=== PATIENT | male | born 1960 | race Caucasian/White ===

== ENCOUNTER 2018-05-31 11:04 | Observation (INO) | payer SELFPAY ==
[2018-05-31] VITALS (10 sets, daily range): BP systolic 101–140; BP diastolic 65–91; PULSE 56–91; RESP 12–18; TEMP 36.2–36.9; O2SAT 94–99; BMI 25.9; BMI 23.1; BMI 23.2
--- NOTE | 2018-05-31 11:30 | US_ITS ---
STUDY: ABDOMINAL ULTRASOUND - RIGHT UPPER QUADRANT REASON FOR VISIT: Male, 57 years old. Right upper quadrant pain. TECHNIQUE: Ultrasound evaluation of the right upper quadrant was performed with real-time and static stover-scale imaging. TECHNICAL QUALITY: Limited. Examination limited by bowel gas. COMPARISON: None. FINDINGS: Liver: The liver measures 15.4 cm. There is normal echogenicity of the liver. The bile ducts are within normal limits. There is hepatic color flow. The direction of portal flow is hepatopetal. There is no demonstrated mass lesion. Gallbladder: Normal distended gallbladder. The gallbladder wall is slightly thickened and measures 4.1 mm. There is a negative sonographic Gould's sign. There is no pericholecystic fluid. There is a solitary echogenic gallstone within the gallbladder. This measures 8 mm x 6 mm x 4 mm. A small amount of sludge is seen within the gallbladder lumen. Common Bile Duct (C.B.D.): The common bile duct measures 6.5 mm. Pancreas: There is nonvisualization of the pancreas due to overlying bowel gas. Right Kidney: Normal size of the right kidney. The right kidney measures 10.4 cm x 4.3 cm x 6.4 cm. Normal renal cortex. The right cortex measures 1.3 cm. There is no demonstrated renal mass or cyst. There is no right hydronephrosis. US/Gallbladder IMPRESSION: Solitary gallstone and sludge in the gallbladder lumen. Mild gallbladder wall thickening. Electronically Signed: Walter Saravia MD at 13:40 EST , Service support ,
--- NOTE | 2018-05-31 11:32 | ED.DCSUM_ITS ---
- ER Visit Summary Date of Service: 05/31/18 Chief Complaint: Abdominal pain History of Present Illness: The patient is a 57 M with abdominal pain for the past 2 weeks. It is epigastric and somewhat right upper quadrant. It is not related to food. It is an achy pain. It was moderate right prior to prese ntation it is now mild. No nausea vomiting diarrhea or constipation no flank pain no urinary symptoms. Physical Examination: Not appear in acute distress. Moist mucous membranes, no obvious facial deformity No C-spine tenderness supple neck. Regular rate and rhythm without any obvious murmurs Clear lungs bilaterally speaking in full sentences without any obvious respiratory distress Abdomen soft with epigastric pain, some right upper quadrant pain. Negative Gould's. No guarding or rebound no lower abdominal pain. Moves all extremities without any difficulty or pain. Skin does not show any obvious rashes or lesions, no trauma. Alert oriented ?3 with no gross focal deficit Emergency Department Course and Treatment: Patient is found to have gallstone pancreatitis, he is given analgesics there is no evidence of infection. I discussed the patient with Dr. Simth through the OR nurse, patient will be admitted to his service for further treatment. Disposition: Admit to the surgical service and currently stable condition Impression: Gallstone pancreatitis This note was generated with [employer] dictation software. It may contain incorrect words, spelling, and punctuation that were not noted in review of the chart prior to signing ED Disposition - Plan for ED Patient: Referrals: Care Physician,No Primary [Primary Care Provider] -
[2018-05-31] MEDS: Mag Hydrox/Al Hydrox/Simeth 30 ML UDC PO (11:55)
[2018-05-31 12:07] LABS: Absolute Lymphocyte Count 1.43 X10^3/ul (0.83-4.51); Absolute Neutrophil Count 4.2 X10^3/uL (2.0-7.7); Basophil# 0.01 X10^3/uL; Basophil% 0.2 % (0-1); Eosinophil# 0.09 X10^3/uL; Eosinophils% 1.4 % (0-5); Hematocrit 46.3 % (40-54); Hemoglobin 15.5 g/dl (13.0-16.5); Lymphocyte # 1.43 X10^3/ul (4.0); Lymphocyte % 22.2 % (19-41); Mean Corp Hgb Conc 33.5 g/gl (32-36); Mean Corpuscular Hgb 31.1 pg (27.0-32.0); Mean Platelet Vol. 10.7 fl (6.2-12.0); Monocyte# 0.71 X10^3/uL; Platelet Count 258 K/mm3 (150-450); RBC Distribution Width CV 12.4 % (11.6-14.6); RBC Distribution Width SD 41.3 fl (35.1-43.9); Red Blood Count 4.98 M/mm3 (4.6-6.2); White Blood Count 6.5 K/mm3 (4.4-11.0)
[2018-05-31 12:10] LABS: POSITIVE COUNT NO; POSITIVE DIFFERENTIAL NO; POSITIVE MORPHOLOGY NO
[2018-05-31 12:26] LABS: ALB/GLOB Ratio 1.1 RATIO (0.9-2.4); AST(SGOT) 343 U/L (15-37); Alanine Aminotransfer ALT/SGPT 304 U/L (16-61); Albumin, Serum 3.8 g/dL (3.2-5.0); Alkaline Phosphatase 174 U/L (45-117); Anion Gap 5 (5-15); BUN 15 mg/dL (7-18); BUN/Creat Ratio 15.3 RATIO (10-20); Calcium,Total 8.6 mg/dL (8.5-10.1); Chloride 106 mmol/L (98-107); Creatinine, Serum 0.98 mg/dL (0.70-1.30); EST Glomerular Filtration Rate 84 mL/min (>60); Est Glom Filt Rate - Afr Amer 101 mL/min (>60); Globulin 3.6 g/dL (2.2-4.2); Glucose 99 mg/dL (74-106); Lipase 7950 U/L (73-393); Potassium 4.3 mmol/L (3.5-5.1); Protein, Total 7.4 g/dL (6.4-8.2); Sodium Level 138 mmol/L (136-145)
--- NOTE | 2018-05-31 14:30 | PCM.HP.STD ---
Problem List (1) Gallstone pancreatitis Status: Acute (2) Elevated liver enzymes Status: Acute History of Present Illness Date of Admission: 05/31/18 The patient is a 57 year old M who presented with right upper quadrant and epigastric pain. The patient reports for the last 2 weeks he has had this happen about 4 times. He said usually last 12 hours. He describes no nausea or vomiting but only epigastric and right upper quadrant pain. He also says that for some time he gets pain when he eats. He does not describe any fevers or chills. Past Medical History Allergies No Known Allergies Allergy (Verified 05/31/18 11:05) Home Medications: Ambulatory Orders Medication Instructions Recorded NK 05/31/18 Surgical History: no surgical history Lives: Spouse/ Significant Other Smoking Status: Never smoker Alcohol: None Drugs: None - *Family History Maternal History Items: No pertinent history Review of Systems Constitutional: Denies: Chills, Fever, Weight Change HEENT: Denies: Head Aches, Sinus Congestion, Sinus Drainage Cardiovascular: Denies: Chest Pain, Palpitations Respiratory: Denies: Cough, Shortness of breath at rest, Sputum production Gastrointestinal: Reports: Abdominal Pain. Denies: Nausea, Vomiting Genitourinary: Denies: Dysuria Musculoskeletal: Denies: Joint Pain, Joint Tenderness Skin: Denies: Rash, Wounds Neurological: Denies: Numbness, Tingling, Focal weakness Psychiatric: Denies: Anxiety, Depression, Homicidal Ideations, Suicidal Ideations Hematologic/ Lymphatic: Denies: Easy Bruising, Easy Bleeding VTE Information - Inpt Only VTE Present on Admission: No VTE Mechan Device Prophylaxis: SCD's Patient Problems: Active and Suspected Problems Gallstone pancreatitis (Acute) Elevated liver enzymes (Acute) - Physical Exam General: Alert, Oriented x3, Cooperative, No apparent distress HEENT: Atraumatic, EOMI Neck: Supple Lungs: Normal air movement Cardiovascular: Regular rate, Regular Rhythm Abdomen: Soft, Non Tender, Non-Distended Extremities: No clubbing Skin: No rashes Musculoskeletal: No Muscle Wasting Neurological: Cranial nerves II-XII grossly intact Psych/Mental Status: Normal Affect Vital Signs Temp Pulse Resp BP Pulse Ox 97.1 F L 76 12 126/91 H 96 05/31/18 11:06 05/31/18 14:28 05/31/18 14:28 05/31/18 14:28 05/31/18 14:28 Oxygen Delivery Method Room Air Weight: 181 lb 3.52 oz Body Mass Index (BMI) 25.9 Laboratory Tests Past 24 Hrs 05/31/18 05/31/18 11:15 11:15 WBC 6.5 RBC 4.98 Hgb 15.5 Hct 46.3 MCV 93.0 MCH 31.1 MCHC 33.5 RDW 12.4 RDW Differential 41.3 Plt Count 258 MPV 10.7 Immature Gran % (Auto) 0.200 Neut % (Auto) 65.0 Lymph % (Auto) 22.2 [place] % (Auto) 11.0 H Eos % (Auto) 1.4 Baso % (Auto) 0.2 Absolute Neuts (auto) 4.2 Absolute Lymphs (auto) 1.43 Total Counted Not Reportable Sodium 138 Potassium 4.3 Chloride 106 Carbon Dioxide 27.0 Anion Gap 5 BUN 15 Creatinine 0.98 Estim Creat Clear Calc 86.90 Est GFR (MDRD) Af Amer 101 Est GFR (MDRD) Non-Af 84 BUN/Creatinine Ratio 15.3 Glucose 99 Calcium 8.6 Total Bilirubin 0.90 AST 343 H ALT 304 H Alkaline Phosphatase 174 H Total Protein 7.4 Albumin 3.8 Globulin 3.6 Albumin/Globulin Ratio 1.1 Lipase 7950 H Clinical Impression(s) from Imaging Studies Gallbladder Ultrasound 05/31/18 11:30 IMPRESSION: Solitary gallstone and sludge in the gallbladder lumen. Mild gallbladder wall thickening. Electronically Signed: Walter Saravia MD at 13:40 EST , Service support , Assessment/Plan All Active Problems Gallstone pancreatitis (Acute) Elevated liver enzymes (Acute) 57-year-old male with gallstone pancreatitis and possible choledocholithiasis 1. The patient reports that coming into the emergency room his pain stopped today. I believe that the patient may be passing small stones from his gallbladder or have one large stone the keeps moving in and out of the way and partially obstructing his common bile duct. His common bile duct is slightly dilated and he does have increased LFTs. He does have gallstones. 2. I recommend performing an ERCP today to ensure that his duct is clear and there are no stones in it. I will proceed with laparoscopic cholecystectomy tomorrow. I explained to him that this would be to ensure that his duct is clear and that this does not happen again but that this would not help his current pain. I explained that I would not feed him until his pancreatitis resolved. 3. I explained ERCP in detail with the patient including the risks. I explained all the risks including but not limited to bleeding, infection, perforation of the bile duct or bowels. Also this may worsen his pancreatitis. The patient understands all the details and risks and agrees to proceed with ERCP today. Olivier Smith MD Pager: [facility] [address] [place] [address] [address] [place] [address] Office:
--- NOTE | 2018-05-31 14:30 | NURSING ---
302 GALLSONE PANCREATITIS ISI
--- NOTE | 2018-05-31 14:31 | CM.ED ---
SOCIAL WORK NOTE REFERRAL DATE: 05/31/18 INFORMANT: NURSE, CORETTA Romero REASON FOR CONSULT: FINANCIAL/SELF PAY. MET WITH PT AND PT'S SIG PATSY, RUTHIE IN ROOM. INTRODUCED ROLE AND REASON FOR REFERRAL. PT IS SELF EMPLOYED AND STATES BELIEVES TO BE OVER INCOME FOR MEDICAID. PT STATES ATTEMPTED TO OBTAIN INSURANCE, BUT HAS MISSED THE ENROLLMENT PERIOD. DISCUSSED OPTIONS AND GIVEN RESOURCES. ALL QUESTIONS ANSWERED AT THIS TIME. PLAN: ADMIT
--- NOTE | 2018-05-31 14:33 | HP.PCM_ITS ---
Problem List (1) Gallstone pancreatitis Status: Acute (2) Elevated liver enzymes Status: Acute History of Present Illness Date of Admission: 05/31/18 The patient is a 57 year old M who presented with right upper quadrant and epigastric pain. The patient reports for the last 2 weeks he has had this happen about 4 times. He said usually last 12 hours. He describes no nausea or vomiting but only epigastric and right upper quadrant pain. He also says that for some time he gets pain when he eats. He does not describe any fevers or chills. Past Medical History Allergies No Known Allergies Allergy (Verified 05/31/18 11:05) Home Medications: Ambulatory Orders Medication Instructions Recorded NK 05/31/18 Surgical History: no surgical history Lives: Spouse/ Significant Other Smoking Status: Never smoker Alcohol: None Drugs: None - *Family History Maternal History Items: No pertinent history Review of Systems Constitutional: Denies: Chills, Fever, Weight Change HEENT: Denies: Head Aches, Sinus Congestion, Sinus Drainage Cardiovascular: Denies: Chest Pain, Palpitations Respiratory: Denies: Cough, Shortness of breath at rest, Sputum production Gastrointestinal: Reports: Abdominal Pain. Denies: Nausea, Vomiting Genitourinary: Denies: Dysuria Musculoskeletal: Denies: Joint Pain, Joint Tenderness Skin: Denies: Rash, Wounds Neurological: Denies: Numbness, Tingling, Focal weakness Psychiatric: Denies: Anxiety, Depression, Homicidal Ideations, Suicidal Ideations Hematologic/ Lymphatic: Denies: Easy Bruising, Easy Bleeding VTE Information - Inpt Only VTE Present on Admission: No VTE Mechan Device Prophylaxis: SCD's Patient Problems: Active and Suspected Problems Gallstone pancreatitis (Acute) Elevated liver enzymes (Acute) - Physical Exam General: Alert, Oriented x3, Cooperative, No apparent distress HEENT: Atraumatic, EOMI Neck: Supple Lungs: Normal air movement Cardiovascular: Regular rate, Regular Rhythm Abdomen: Soft, Non Tender, Non-Distended Extremities: No clubbing Skin: No rashes Musculoskeletal: No Muscle Wasting Neurological: Cranial nerves II-XII grossly intact Psych/Mental Status: Normal Affect Vital Signs Temp Pulse Resp BP Pulse Ox 97.1 F L 76 12 126/91 H 96 05/31/18 11:06 05/31/18 14:28 05/31/18 14:28 05/31/18 14:28 05/31/18 14:28 Oxygen Delivery Method Room Air Weight: 181 lb 3.52 oz Body Mass Index (BMI) 25.9 Laboratory Tests Past 24 Hrs 05/31/18 05/31/18 11:15 11:15 WBC 6.5 RBC 4.98 Hgb 15.5 Hct 46.3 MCV 93.0 MCH 31.1 MCHC 33.5 RDW 12.4 RDW Differential 41.3 Plt Count 258 MPV 10.7 Immature Gran % (Auto) 0.200 Neut % (Auto) 65.0 Lymph % (Auto) 22.2 [place] % (Auto) 11.0 H Eos % (Auto) 1.4 Baso % (Auto) 0.2 Absolute Neuts (auto) 4.2 Absolute Lymphs (auto) 1.43 Total Counted Not Reportable Sodium 138 Potassium 4.3 Chloride 106 Carbon Dioxide 27.0 Anion Gap 5 BUN 15 Creatinine 0.98 Estim Creat Clear Calc 86.90 Est GFR (MDRD) Af Amer 101 Est GFR (MDRD) Non-Af 84 BUN/Creatinine Ratio 15.3 Glucose 99 Calcium 8.6 Total Bilirubin 0.90 AST 343 H ALT 304 H Alkaline Phosphatase 174 H Total Protein 7.4 Albumin 3.8 Globulin 3.6 Albumin/Globulin Ratio 1.1 Lipase 7950 H Clinical Impression(s) from Imaging Studies Gallbladder Ultrasound 05/31/18 11:30 IMPRESSION: Solitary gallstone and sludge in the gallbladder lumen. Mild gallbladder wall thickening. Electronically Signed: Walter Saravia MD at 13:40 EST , Service support , Assessment/Plan All Active Problems Gallstone pancreatitis (Acute) Elevated liver enzymes (Acute) 57-year-old male with gallstone pancreatitis and possible choledocholithiasis 1. The patient reports that coming into the emergency room his pain stopped today. I believe that the patient may be passing small stones from his gallbladder or have one large stone the keeps moving in and out of the way and partially obstructing his common bile duct. His common bile duct is slightly dilated and he does have increased LFTs. He does have gallstones. 2. I recommend performing an ERCP today to ensure that his duct is clear and there are no stones in it. I will proceed with laparoscopic cholecystectomy tomorrow. I explained to him that this would be to ensure that his duct is clear and that this does not happen again but that this would not help his current pain. I explained that I would not feed him until his pancreatitis resolved. 3. I explained ERCP in detail with the patient including the risks. I explained all the risks including but not limited to bleeding, infection, perforation of the bile duct or bowels. Also this may worsen his pancreatitis. The patient understands all the details and risks and agrees to proceed with ERCP today. Olivier Smith MD Pager: [facility] [address] [place] [address] [address] [place] [address] Office:
--- NOTE | 2018-05-31 14:40 | RAD_ITS ---
STUDY: ERCP. REASON FOR EXAM: Male, 57 years old. Gallstones. Dilated common bile duct. FLUOROSCOPY TIME (if supplied): (2:54) minutes/seconds. Imaging was submitted. TECHNIQUE: An ERCP was performed by the surgeon. Contrast was injected. COMPARISON: None. FINDINGS: There is dilatation of the common bile duct. There is a filling defect in the distal portion of the common bile duct. No contrast is seen entering the duodenum. A distal gallbladder stones should be ruled out. A balloon catheter was then placed. RAD/ERCP Biliary Only IMPRESSION: Dilated common bile duct with the intraluminal filling defect along its distal portion. Balloon catheter was then passed. Electronically Signed: Walter Saravia MD at 8:25 EST , Service support ,
[2018-05-31] MEDS: Dextrose 5%-Lactated Ringers 1,000 ML 125 ML IV (15:18)
--- NOTE | 2018-05-31 16:13 | NURSING ---
call placed to report given to iraj
--- NOTE | 2018-05-31 17:54 | CT_ITS ---
STUDY: CT ABDOMEN AND PELVIS WITHOUT CONTRAST REASON FOR EXAM: Male, 57 years old. Right upper quadrant pain. Elevated liver enzymes. RADIATION DOSAGE (If Supplied By Facility): CTDIvol = ( 10.23 ) mGy, DLP = ( 545.93 ) mGycm TECHNIQUE: Transaxial images were obtained from the dome of the diaphragm to the symphysis pubis without oral contrast, and without intravenous contrast. Sagittal and coronal images were reconstructed. Individualized dose optimization techniques were used for this CT. COMPARISON: Abdominal ultrasound, May 31, 2018. ERCP, May 31, 2018 FINDINGS: Minimal dependent changes at the lung bases. The lungs are otherwise clear. The visualized portions of the heart are within normal limits. Liver is normal in size, contour and density. There is evidence of pneumobilia on the nondependent intrahepatic bile ducts minimal ductal dilatation in the dependent ducts. Air is seen in the CBD. There is a biliary stent extending from the CBD into the duodenum. The gallbladder is edematous and nondistended. There are at least 2 gallstones. Minimal air is seen within the fundus. Normal spleen. Normal pancreas. Normal bilateral adrenal glands. Normal right kidney. There is a 2 mm calcification in the proximal right ureter best seen on image 55 of series 2. There is no hydronephrosis. The distal ureter is unremarkable. Normal left kidney. Normal left ureter. There is a small type I hiatal hernia. The stomach is otherwise unremarkable. Normal small intestine. Scattered sigmoid diverticuli without acute inflammatory change. The proximal colon appears unremarkable. The appendix is visualized and appears normal. Normal abdominal aorta. Normal inferior vena cava. Normal retroperitoneum. Normal urinary bladder. The prostate is mildly enlarged with central calcifications. There is prominence of the seminal vesicles. There are phleboliths in the pelvis without lymphadenopathy. No free air or free fluid is seen within the peritoneal cavity. There is an umbilical hernia of omental fat. The abdominal wall is otherwise grossly unremarkable. There are diffuse degenerative changes of the visualized lumbar spine. CT/Abdomen/Pelvis W IV Cont ONLY IMPRESSION: 1. A biliary stent as seen on the ERCP. There is mild pneumobilia. 2. Nondistended edematous gallbladder with gallstones. This was noted on prior ultrasound. 3. What appears to be a nonobstructing calculus in the proximal right ureter. There is no hydronephrosis. 4. Scattered diverticuli without acute inflammatory change. 5. Enlarged prostate with dense central calcifications. 6. Degenerative changes of the lumbar spine Electronically Signed: Kishor Burgess DO at 19:45 EST Tel [phone], Service support ,
--- NOTE | 2018-05-31 17:54 | PCM.PN.BLA ---
Progress Note I performed an ERCP on the patient this evening. The patient did have a few centimeters space between the bowel and the opening of the common bile duct. I am unsure if this is due to swelling or mass or stricture. The patient had a very dilated common bile duct. There was some small sludge removed from the common bile duct but no obvious large stone. A stent was placed. In order to make sure that there is not a mass causing this but I was unable to see on the ERCP I will order a CT of the abdomen. As long as CT is normal patient will go for laparoscopic cholecystectomy tomorrow. Olivier Smith MD Pager: [facility] [address] [place] [address], [address] [place] [address] Office:
--- NOTE | 2018-05-31 18:01 | OP.ENDO_ITS ---
05/31/2018 No Primary Care Physician Re : ERCP procedure for Uziel [facility] Care Physician This procedure was performed on Thursday, May 31, 2018. My impressions and recommendations are as follows: Impressions : - The major papilla appeared normal. - The entire main bile duct was moderately dilated, with an obstruction. - A biliary sphincterotomy was performed. - The biliary tree was swept and sludge was found. - One plastic stent was placed into the common bile duct. Recommendations : My findings are described in the full procedure note, which is enclosed. If I can be of further assistance, please feel free to contact me at Doctor phone number(s): , Work: . Sincerely, Olivier Smith MD 05/31/2018 6:01:04 PM This report has been signed electronically.
[2018-06-01] VITALS (9 sets, daily range): BP systolic 107–128; BP diastolic 71–84; PULSE 80–96; RESP 16–18; TEMP 36.2–37.3; O2SAT 93–98
--- NOTE | 2018-06-01 | GALL_PTH ---
PATIENT: AMARJIT BLANDON LOC: MS3 U#:[id number] AGE/SX: 57/M ROOM: [facility] RE05/31/[address]: Dr. Olivier Smith MD : 1960 BED: 1 DIS: 06/01/2018 SPEC #: [id number] RECD: 06/01/18 15:24 STATUS: LUCIANO BERNARD #: [id number] SARWAT: 06/01/18 00:[address]: Olivier Smith DEPT: SURGICAL PATHOLOGY RECD BY: Venkata Shah ENTERED: 06/02/18 07:50 SP TYPE: MICHELE CASAS DR: No Primary Care Phys Tissues: Gallbladder, NOS Procedures: Surgery Specimen Level III HEADER OPERATION: Laparoscopic cholecystectomy with IOC PRE-OP DIAGNOSIS: Gallstone pancreatitis, elevated liver enzymes TISSUE SUBMITTED: Gallbladder MICROSCOPIC DIAGNOSIS Gallbladder, cholecystectomy: Acute and chronic cholecystitis and cholelithiasis. SJ:mireille 06/03/18 MICROSCOPIC DESCRIPTION Slides are reviewed. GROSS DESCRIPTION Received is one container labeled with the patient's name and designated gallbladder. The specimen consists of a gallbladder measuring 8.5 cm in length and 3 cm in diameter. The external surface is pink-aaron, smooth and glistening for the most part. Focally it is granular, hemorrhagic and contains cautery artifact. The gallbladder contains a small amount of turbid grayish-green mucoid bile and two black irregular stones measuring 0.2 and 0.3 cm in greatest dimension. The mucosa is bile-stained and without any mass lesions. The gallbladder wall measures up to 1 cm in thickness. Increased amount of subserosal fat is noted. [employer] sections from the gallbladder and the cystic duct are submitted in one cassette. / SJ:mireille 06/02/18 TC:2 [facility]: [id number]
--- NOTE | 2018-06-01 05:55 | EKG12_ITS ---
Test Reason : AM EKG Blood Pressure : / mmHG Vent. Rate : 092 BPM Atrial Rate : 092 BPM P-R Int : 168 ms QRS Dur : 102 ms QT Int : 364 ms P-R-T Axes : 060 006 039 degrees QTc Int : 450 ms Normal sinus rhythm Normal ECG No previous ECGs available Confirmed by NINI JAMESON, RADHA ([id number]), newspaper editor managing LUIS ALBERTO RODRIGUEZ ([id number]) on 06/03/2018 9:28:50 AM Referred By: ISI Confirmed By:RADHA TERRAZAS MD
[2018-06-01 06:07] LABS: Absolute Lymphocyte Count 0.74 X10^3/ul (0.83-4.51); Absolute Neutrophil Count 7.3 X10^3/uL (2.0-7.7); Hematocrit 44.3 % (40-54); Lymphocyte # 0.74 X10^3/ul (4.0); Lymphocyte % 9.1 % (19-41); Mean Corp Hgb Conc 33.9 g/gl (32-36); Mean Corpuscular Hgb 30.9 pg (27.0-32.0); Mean Corpuscular Volume 91.3 fL (80-94); Monocyte# 0.06 X10^3/uL; Monocyte% 0.7 % (0-10); Neutrophil # 7.29 X10^3/uL (2.7-7.7); Neutrophil % 90.1 % (47-70); Platelet Count 239 K/mm3 (150-450); RBC Distribution Width SD 39.7 fl (35.1-43.9); Red Blood Count 4.85 M/mm3 (4.6-6.2); White Blood Count 8.1 K/mm3 (4.4-11.0)
[2018-06-01 06:28] LABS: POSITIVE COUNT NO; POSITIVE DIFFERENTIAL NO; POSITIVE MORPHOLOGY NO
[2018-06-01 06:30] LABS: AST(SGOT) 65 U/L (15-37); Alanine Aminotransfer ALT/SGPT 190 U/L (16-61); Albumin, Serum 3.2 g/dL (3.2-5.0); Alkaline Phosphatase 139 U/L (45-117); Anion Gap 10 (5-15); BUN 13 mg/dL (7-18); BUN/Creat Ratio 12.4 RATIO (10-20); Calcium,Total 8.5 mg/dL (8.5-10.1); Chloride 109 mmol/L (98-107); Creatinine, Serum 1.05 mg/dL (0.70-1.30); EST Glomerular Filtration Rate 78 mL/min (>60); Est Glom Filt Rate - Afr Amer 94 mL/min (>60); Estimated Creatinine Clearance 81.11 ml/min; Globulin 3.1 g/dL (2.2-4.2); Glucose 172 mg/dL (74-106); Lipase 209 U/L (73-393); Potassium 4.2 mmol/L (3.5-5.1); Protein, Total 6.3 g/dL (6.4-8.2); Sodium Level 142 mmol/L (136-145)
--- NOTE | 2018-06-01 07:12 | PCM.PN.SRG ---
Patient Problems: Active and Suspected Problems Gallstone pancreatitis (Acute) Elevated liver enzymes (Acute) Subjective: Patient is feeling well this morning. - Physical Exam General: Alert, Oriented x3 Lungs: Normal air movement Cardiovascular: Regular rate, Regular Rhythm Abdomen: Soft, Non Tender, Non-Distended Vital Signs Temp Pulse Resp BP Pulse Ox 98.4 F 96 16 112/71 93 06/01/18 03:10 06/01/18 03:10 06/01/18 03:10 06/01/18 03:10 06/01/18 03:10 Oxygen Delivery Method Room Air Weight: 161 lb 6.054 oz Body Mass Index (BMI) 23.1 Intake and Output for Last 24 Hours 05/30/18 05/31/18 06/01/18 23:59 23:59 23:59 Intake Total 800 / 800 679 / 679 Balance 800 / 800 679 / 679 Laboratory Tests Past 24 Hrs 05/31/18 05/31/18 06/01/18 11:15 11:15 05:38 WBC 6.5 8.1 RBC 4.98 4.85 Hgb 15.5 15.0 Hct 46.3 44.3 MCV 93.0 91.3 MCH 31.1 30.9 MCHC 33.5 33.9 RDW 12.4 12.0 RDW Differential 41.3 39.7 Plt Count 258 239 MPV 10.7 11.0 Immature Gran % (Auto) 0.200 0.100 Neut % (Auto) 65.0 90.1 H Lymph % (Auto) 22.2 9.1 L [place] % (Auto) 11.0 H 0.7 Eos % (Auto) 1.4 0.0 Baso % (Auto) 0.2 0.0 Absolute Neuts (auto) 4.2 7.3 Absolute Lymphs (auto) 1.43 0.74 L Total Counted Not Reportable Not Reportable Sodium 138 Potassium 4.3 Chloride 106 Carbon Dioxide 27.0 Anion Gap 5 BUN 15 Creatinine 0.98 Estim Creat Clear Calc 86.90 Est GFR (MDRD) Af Amer 101 Est GFR (MDRD) Non-Af 84 BUN/Creatinine Ratio 15.3 Glucose 99 Calcium 8.6 Total Bilirubin 0.90 AST 343 H ALT 304 H Alkaline Phosphatase 174 H Total Protein 7.4 Albumin 3.8 Globulin 3.6 Albumin/Globulin Ratio 1.1 Lipase 7950 H 06/01/18 05:38 WBC RBC Hgb Hct MCV MCH MCHC RDW RDW Differential Plt Count MPV Immature Gran % (Auto) Neut % (Auto) Lymph % (Auto) [place] % (Auto) Eos % (Auto) Baso % (Auto) Absolute Neuts (auto) Absolute Lymphs (auto) Total Counted Sodium 142 Potassium 4.2 Chloride 109 H Carbon Dioxide 23.0 Anion Gap 10 BUN 13 Creatinine 1.05 Estim Creat Clear Calc 81.11 Est GFR (MDRD) Af Amer 94 Est GFR (MDRD) Non-Af 78 BUN/Creatinine Ratio 12.4 Glucose 172 H Calcium 8.5 Total Bilirubin 0.60 AST 65 H ALT 190 H Alkaline Phosphatase 139 H Total Protein 6.3 L Albumin 3.2 Globulin 3.1 Albumin/Globulin Ratio 1.0 Lipase 209 Clinical Impression(s) from Imaging Studies Gallbladder Ultrasound 05/31/18 11:30 IMPRESSION: Solitary gallstone and sludge in the gallbladder lumen. Mild gallbladder wall thickening. Electronically Signed: Walter Saravia MD at 13:40 EST , Service support , Abdomen/Pelvis CT 05/31/18 17:54 IMPRESSION: 1. A biliary stent as seen on the ERCP. There is mild pneumobilia. 2. Nondistended edematous gallbladder with gallstones. This was noted on prior ultrasound. 3. What appears to be a nonobstructing calculus in the proximal right ureter. There is no hydronephrosis. 4. Scattered diverticuli without acute inflammatory change. 5. Enlarged prostate with dense central calcifications. 6. Degenerative changes of the lumbar spine Electronically Signed: Kishor Burgess DO at 19:45 EST Tel [phone], Service support , Medical Necessity - Tobacco Use Smoking Status: Never smoker Assessment/Plan All Active Problems Gallstone pancreatitis (Acute) Elevated liver enzymes (Acute) 57-year-old male with gallstone pancreatitis and biliary obstruction 1. Patient had ERCP yesterday with stent placement. The patient had a very dilated common bile duct and a segment of common duct which was stenosed in the distal segment. The ampulla appeared normal. Patient may need EUS and stent removal at a tertiary hospital. Patient had CT scan yesterday evening which did not show any masses in the pancreas or liver. The gallbladder did appear edematous. Patient will go for laparoscopic cholecystectomy this morning. Continue antibiotics. 2. I discussed the procedure in detail with the patient. I discussed the risks, benefits, and alternatives of the procedure. I discussed the risks including but not limited to bleeding, infection, injury to surrounding organs such as the liver, bile duct, bowels. I did discuss the possibility of having to convert to an open procedure as well as the possibility that if any injuries occurred this may necessitate further surgery at a tertiary care center. Olivier Smith MD Pager: [facility] [address] [place] [address] [address] [place] [address] Office:
--- NOTE | 2018-06-01 09:05 | RAD_ITS ---
STUDY: INTRAOPERATIVE CHOLANGIOGRAM. REASON FOR EXAM: Male, 57 years old. Laparoscopic cholecystectomy. FLUOROSCOPY TIME (if supplied): (0:22) minutes/seconds TECHNIQUE: An intraoperative placement was performed by the surgeon. Imaging was provided. COMPARISON: None. FINDINGS: Mild dilatation of the common bile duct. The distal portion of the common bile duct is narrow although there is flow of contrast into the duodenum. No intraluminal filling defect is seen. RAD/Cholangiogram/ O R,Initial IMPRESSION: Narrowing of the distal portion of the common bile duct. Contrast is seen within the duodenum. Electronically Signed: Walter Saravia MD at 9:25 EST , Service support ,
--- NOTE | 2018-06-01 12:37 | PCA ---
pt off floor
[2018-06-01] MEDS: Bupiv/Epi 0.5% Mpf 30 ML Vial (12:44)
--- NOTE | 2018-06-01 13:24 | OP.PCM_ITS ---
Problem List (1) Gallstone pancreatitis Status: Acute (2) Elevated liver enzymes Status: Acute Report of Operation Date of Procedure: 06/01/18 Pre-Operative Diagnosis: Gallstone pancreatitis Post-Operative Diagnosis: Gallstone pancreatitis. Acute cholecystitis Surgery/Procedure Performed:: Laparoscopic cholecystectomy with cholangiogram Description of Surgical Findings:: Inflamed gallbladder Specimen's removed: Gallbladder and contents Description of Procedure: After obtaining informed consent patient was brought back to the operating room. General anesthesia was induced. The abdomen was prepped and draped in usual sterile fashion. A small midline incision was made superior to the umbilicus and deepened to the level of fascia. The fascia was elevated and incised. Next the peritoneum was elevated and incised in the same fashion. Finger sweep was performed and the Hayes trocar was placed into the abdomen. The balloon was inflated. The abdomen was inflated to 15 mmHg. Next a camera was introduced into the abdomen and the abdomen was inspected. Next under direct visualization three 5-mm ports were placed one subxiphoid and 2 subcostal. The gallbladder was inflamed. Next the gallbladder was elevated and retracted toward the right shoulder. The peritoneum was stripped from the gallbladder. The infundibulum was located and retracted laterally. Next the triangle of Calot was dissected and the cystic duct and cystic artery were identified. Cholangiograms were per formed. The King clamp was used to clamp across the infundibulum and the catheter needle was inserted into the gallbladder. Under fluoroscopy contrast was instilled into the gallbladder and the common duct, cystic duct as well as proximal hepatic ducts were identified. There was good filling of the duodenum. There were no filling defects noted in the common bile duct. The clamp was removed as well as the needle and the infundibulum was grasped once more. Three hemolock clips were placed across the cystic duct. The cystic duct was then divided leaving 2 clips on the stump. The cystic artery was clipped and divided in the same fashion. The hook cautery was then used to take the gallbladder off of the gallbladder bed. Hemostasis was obtained. Gallbladder fossa was irrigated and no active bleeding or bile leakage was noted. Next the camera switched to a 5 mm camera and introduced in the subxiphoid port. An Endopouch bag was placed through the umbilical port and the gallbladder was placed into it. The gallbladder was then removed through the umbilical incision. The camera was then reinserted through the umbilical port. The gallbladder fossa was inspected once more and noted to be hemostatic with no leaking bile. The abdomen was suctioned dry. The 5 mm ports were removed under direct visualization. The umbilical port was then removed and the air was removed from the abdomen. Next using an 0 Vicryl suture the umbilical fascia was closed in a [id number] fashion. The umbilical port site was irrigated local anesthetic was administered to all the incisions. All the incisions were closed with interrupted subcuticular 4-0 Monocryl sutures followed by Steri-Strips and dressings. The patient was awoken and taken to PACU in stable condition. - Admit VTE Documentation VTE Mechan Device Prophylaxis: SCD's
--- NOTE | 2018-06-01 13:28 | DCINST_ITS ---
Discharge Diet: Light diet - advance as tolerated Discharge Activity: Return to Normal Activity, May Not Drive - for 2-3 days or while taking narcotic pain medicataions., - - Do not drive, work heavy equipment or sign legal documents for 24 hours. May shower in (days): 1 - with the bandage in place. Additional Activity Instructions:: Pain medication may cause nausea. You should typically eat light foods as you take your pain medications. Pain medication may also cause constipation. If this is a problem for you, please discuss with your doctor. Call your doctor if your incision/area has: Continuous Slow Oozing, Sudden Increased Bleeding, Increased Pain/ Swelling, Increased Redness, Foul Smelling Discharge, Fever of 101 or Higher Call your doctor if you observe: Fever of 101 or Higher Suture Line Care: Avoid Pulling/Pushing, Avoid Pinching/Bending Additional Dressing/Incision Instructions:: Leave operative bandaids on for 2 days. When you remove dressing, leave Steri-Strips on until your follow-up appointment, or until the Steri-Strips fall off on their own. Allergies/Adverse Reactions: Allergies No Known Allergies Allergy (Verified 05/31/18 11:05) Medications to take at Discharge Oxycodone HCl/Acetaminophen [Percocet 5/325] 1 - 2 tablet PO Q4H PRN PRN 7 Days #40 tablet 06/01/18 The following prescriptions were given: Oxycodone HCl/Acetaminophen [Percocet 5/325] 1 - 2 tablet PO Q4H PRN PRN 7 Days #40 tablet PRN Reason: Pain Primary Care Physician: Care Physician,No Primary [Primary Care Provider] - Test Results: Test results from this visit will be discussed in further detail at your follow- up appointment, if applicable. Please Follow Up With: Olivier Smith MD When: Please call to schedule 1 week follow up appointment. [phone]
[2018-06-01] MEDS: Dextrose 5%-Lactated Ringers 1,000 ML 125 ML IV (13:32)
--- NOTE | 2018-06-01 14:02 | PCA ---
pt off floor
[2018-06-01] MEDS: Acetaminophen 325 MG Tablet 650 MG PO (14:18)
--- NOTE | 2018-06-01 14:30 | NURSING ---
student nurse's charting reviewed for learning and educational purposes
== END 2018-06-01 18:55 | disposition home or self-care (01) ==
LOC: ED 11:27 → MS3 14:35
PROVIDERS: Admitting Provider Surgery; Emergency Provider Emergency Medicine; Visit Provider Surgery
PROC: (CPT 43260; principal; 2018-05-31 18:10)
DX: K80.12 Calculus of gallbladder with acute and chronic cholecystitis without obstruction (principal); R74.8 Abnormal levels of other serum enzymes
CPT/HCPCS: 43262; 47563; 36415; 74177; 74300; 74328; 76000; 76705; 80053; 83690; 85025; 88304; 93005; 96361; 96365; 96366; 97802; 99218; 99282; Q9967; G0378; J2405

== ENCOUNTER → 2024-06-06 | Outpatient (CLI) | payer BC, SELFPAY ==
--- NOTE | 2024-06-06 09:33 | RAD_ITS ---
PROCEDURE: THORACIC SPINE 3 VIEWS REASON FOR EXAM: Pain. TECHNIQUE: 3 views of the thoracic spine. COMPARISON: None FINDINGS: Thoracic vertebral bodies maintain a normal height. There is mild dextroscoliosis of the midthoracic spine and mild levoscoliosis of the upper thoracic spine and lower thoracic spine. Multilevel mild disc space narrowing with endplate spurring is identified. No acute fracture or subluxation is present. Bilateral pedicles are symmetric. RAD/Thoracic Spine 3 Views IMPRESSION: 1. No acute thoracic spine fracture. 2. Multilevel mild degenerative changes. 3. Mild scoliosis. Reading Location: [facility]
--- NOTE | 2024-06-06 09:34 | RAD_ITS ---
PROCEDURE: CERV SPINE 4 OR 5 VIEWS REASON FOR EXAM: Pain. TECHNIQUE: 5 views of the cervical spine. COMPARISON: None FINDINGS: Cervical vertebral bodies are seen to the C7-T1 level on the sagittal view. Cervical vertebral bodies maintain a normal height. There is mild dextroscoliosis of the cervical spine. Multilevel degenerative changes are present with disc space narrowing and endplate spurring which is on a severe basis from C5-C7. There is mild anterolisthesis of C4-C5. Multilevel facet/uncovertebral changes are present with neural foraminal narrowing which is present from C4-C7 bilaterally. No acute fracture or subluxation is present. Prevertebral soft tissues are unremarkable. Atlantodental interval is intact. Odontoid process is intact. Lateral masses align. RAD/Cerv Spine 4 or 5 Views IMPRESSION: 1. No acute cervical spine fracture. 2. Multilevel degenerative changes greatest from C5-C7. If clinical concern fo r radiculopathy, MRI is a more sensitive exam. Reading Location: [facility]
[2024-06-06 12:49] LABS: Absolute Lymphocyte Count 1.65 X10^3/uL (0.83-4.51); Absolute Neutrophil Count 4.3 X10^3/uL (2.0-7.7); Basophil# 0.03 X10^3/uL; Basophil% 0.5 % (0-1); Eosinophil# 0.12 X10^3/uL; Eosinophils% 1.8 % (0-5); Hematocrit 46.2 % (40-54); Hemoglobin 15.1 g/dL (13.0-16.5); Lymphocyte # 1.65 X10^3/ul (0.83-4.51); Lymphocyte % 25.4 % (19-41); Mean Corp Hgb Conc 32.7 g/dL (32-36); Mean Corpuscular Hgb 30.5 pg (27.0-32.0); Mean Corpuscular Volume 93.3 fL (80-94); Monocyte# 0.41 X10^3/uL; Monocyte% 6.3 % (0-10); NRBC Flagged by Analyzer 0 % (0-5); Neutrophil # 4.28 X10^3/uL (2.7-7.7); Neutrophil % 65.8 % (47-70); Platelet Count 237 K/mm3 (150-450); RBC Distribution Width SD 41.4 fl (35.1-43.9); Red Blood Count 4.95 M/mm3 (4.6-6.2); White Blood Count 6.5 K/mm3 (4.4-11.0)
[2024-06-06 14:15] LABS: ALB/GLOB Ratio 1.1 RATIO (0.9-2.4); AST(SGOT) 21 U/L (15-37); Alanine Aminotransfer ALT/SGPT 31 U/L (16-61); Albumin, Serum 3.6 g/dL (3.2-5.0); Alkaline Phosphatase 84 U/L (45-117); Anion Gap 7 (5-15); BUN 15 mg/dL (7-18); BUN/Creat Ratio 15.3 RATIO (10-20); Chloride 107 mmol/L (98-107); Cholesterol 242 mg/dL (200); Creatinine, Serum 0.98 mg/dL (0.70-1.30); EST Glomerular Filtration Rate 82 mL/min (>60); Est Glom Filt Rate - Afr Amer 100 mL/min (>60); Globulin 3.4 g/dL (2.2-4.2); Glucose 90 mg/dL (74-106); High Density Lipoprotein 49 mg/dL; Potassium 4.6 mmol/L (3.5-5.1); Sodium Level 140 mmol/L (136-145); Triglycerides 213 mg/dL; Very Low Density Lipoprotein 43 mg/dL (5-40)
== END | disposition home or self-care (01) ==
PROVIDERS: PCP Nurse Practitioner Family; Referring Provider Nurse Practitioner Family; Visit Provider Nurse Practitioner Family
DX: Z00.01 Encounter for general adult medical examination with abnormal findings (principal); Z12.5 Encounter for screening for malignant neoplasm of prostate; M54.9 Dorsalgia, unspecified; M79.2 Neuralgia and neuritis, unspecified
CPT/HCPCS: 36415; 72050; 72072; 80053; 80061; 84153; 85025; G0103

== ENCOUNTER → 2024-07-20 | Outpatient (CLI) | payer BC, SELFPAY ==
--- NOTE | 2024-07-20 12:42 | VDLE_ITS ---
Reason For Study Reason For Study: Right calf pain RIGHT LEFT GSV is normal. CFV is compressible, spontaneous, phasic, competent, CFV is compressible, spontaneous, phasic, competent and demonstrates normal augmentation. and demonstrates normal augmentation. FV is compressible, spontaneous, phasic, competent and demonstrates normal augmentation. POP V is compressible, spontaneous, phasic, competent and demonstrates normal augmentation. Acute deep vein thrombosis is noted in the T/P Trunk distal, PTV prox, PeroV and SoleusV. It is dilated and NONCOMPRESSIBLE. Procedure This is a venous duplex using B-mode, color flow and spectral Doppler. Exam performed in department. A preliminary report was called and/or faxed to [facility]. VL/Venous Duplex US, Unilateral Interpretation Summary Acute deep vein thrombosis noted in the right tibioperoneal trunk vein, posteri or tibial vein, peroneal vein, soleus vein. Ordering Physician: Adiel Mckeon Referring Physician: Annabella Martínez Performed By: Alicia Gutierrez RVT
== END | disposition home or self-care (01) ==
LOC: CVS 12:39
PROVIDERS: PCP Nurse Practitioner Family; Referring Provider Family Medicine; Visit Provider Family Medicine
DX: M79.661 Pain in right lower leg (principal)
CPT/HCPCS: 93971